=== PATIENT | male | born 1970 | race Caucasian/White ===

== ENCOUNTER → 2021-09-21 | Day surgery (SDC) | payer OTHER ==
[~2021-09-21] VITALS: Ht 180.3 cm; Wt 90.7 kg
[~2021-09-21] MED LIST: ANTIVERT25 MG PO; CETIRIZINE HCL10 MG PO; FLONASE ALLER15.8 ML; PRAVACHOL20 MG PO; PRINIVIL10 MG PO
== END | disposition home or self-care (01) ==
LOC: FAS 09:24
DX: Z12.11 Encounter for screening for malignant neoplasm of colon (principal); D12.5 Benign neoplasm of sigmoid colon; R13.13 Dysphagia, pharyngeal phase; K44.9 Diaphragmatic hernia without obstruction or gangrene; R59.0 Localized enlarged lymph nodes; F17.210 Nicotine dependence, cigarettes, uncomplicated
CPT/HCPCS: J2250; J2704; J7120